=== PATIENT | male | born 1995 | race Caucasian/White ===

== ENCOUNTER 2016-07-03 14:31 | Emergency (ER) | payer BC ==
[2016-07-03 14:37] VITALS: TEMP 36.7; O2SAT 96
--- NOTE | 2016-07-03 14:53 | EMERGENCY ROOM VISIT NOTE ---
History Report prepared by Kayce: Yola Tsang Under the Supervision of: Dr. Phillip Ernst M.D. First contact with patient: 14:41 Chief Complaint: ALCOHOL OVERDOSE Stated Complaint: etoh Nursing Triage Summary: per ems patient drank about 1 fifth of alcohol. "friends stated he fell and hit his head on a parked car." no abrasions or trauma noted to head or face. patient was incontinent of urine at time of arrival. patient responds to painful stimuli. 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 He arrives to the ED by EMS. The nurses report that the patient's friend's told EMS that the patient fell and hit his head on a car. His friends were also intoxicated and did not provide a detailed account. He had an empty fifth of vodka in his possession. He denies any headache. The history is limited due to intoxication. 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 Family History No pertinent family history reported. Current/Historical Medications Unable to Obtain Active Prescriptions or Reported Meds Physical Exam Vital Signs Date Time Temp Pulse Resp B/P Pulse Ox O2 Delivery O2 Flow Rate FiO2 07/03/16 20:53 92 18 98 07/03/16 20:00 108/85 07/03/16 19:55 121 18 98 07/03/16 19:46 138/85 07/03/16 19:25 126 19 100 07/03/16 19:03 107 07/03/16 19:00 132/64 07/03/16 18:55 105 0 95 07/03/16 18:50 102 16 94 07/03/16 18:20 90 97 07/03/16 18:15 74 17 97 07/03/16 18:00 136/70 07/03/16 17:45 79 17 94 07/03/16 17:15 75 16 94 07/03/16 17:00 120/56 07/03/16 16:45 76 0 97 07/03/16 16:40 88 20 97 07/03/16 16:36 151/69 07/03/16 16:10 94 13 98 07/03/16 15:59 157/52 07/03/16 15:19 72 18 95 Room Air 07/03/16 15:10 91 12 96 07/03/16 15:05 164/84 07/03/16 15:01 68 18 95 Room Air 07/03/16 14:46 71 07/03/16 14:37 36.7 92 14 130/39 98 Room Air 07/03/16 14:37 96 Room Air 07/03/16 14:36 132/39 Physical Exam GENERAL: Patient is barely responsive to verbal stimuli. Alcohol noted on breath. Unintelligible conversation. SKIN: No erythema, pallor, cyanosis or rash HEENT: Normocephalic, no lumps, bumps, or bruises. No hemotympanun. No Shane's sign or raccoon sign. Pupils equal, reactive to light and accommodation. Ears normal. Oral cavity and posterior pharynx appear normal. Neck: Supple, no step off. LUNGS: Clear to auscultation. No wheezes, no rales, no rhonchi. HEART: No murmurs. No gallops. No rubs EXTREMITIES: No signs of trauma or infection. NEUROLOGIC: Cranial nerves II-XII within normal limits. No gross motor sensory function deficits. Medical Decision & Procedures ER Provider Diagnostic Interpretation: Radiology results as stated below per my review and radiologist interpretation: CT HEAD WITHOUT CONTRAST (CT) CLINICAL HISTORY: Head pain status post trauma COMPARISON STUDY: No previous studies for comparison. TECHNIQUE: Axial CT of the brain is performed from the vertex to the skull base. IV contrast was not administered for this examination. CT DOSE: 3312.54 mGy.cm FINDINGS: No intra or extra-axial mass lesions are visualized. There is no CT evidence of acute cortical infarction. There is no evidence of midline shift. There is no acute hemorrhage. No calvarial fractures are visualized. The examination is slightly compromised due to motion artifact. There is no evidence of pathologic ventricular dilatation. There is no evidence of acute sinusitis IMPRESSION: Normal noncontrast head CT. Electronically signed by: Marc Wilkinson M.D. 07/03/2016 3:47 PM Dictated Date/Time: 07/03/2016 3:[address] OF THE CERVICAL SPINE CLINICAL HISTORY: Neck pain status post trauma COMPARISON STUDY: No previous studies for comparison. CT DOSE: TECHNIQUE: CT scan of the cervical spine was performed from the skull base to the thoracic inlet. Images are reviewed in the axial, sagittal, and coronal planes. IV contrast was not administered for this examination. FINDINGS: The visualized portions of the lung apices reveal no evidence of pneumothorax. The prevertebral soft tissues are normal. No fractures or subluxations are visualized. There is a cervical levoscoliosis. IMPRESSION: No evidence of acute fracture or traumatic subluxation. Electronically signed by: Marc Wilkinson M.D. 07/03/2016 3:51 PM Dictated Date/Time: 07/03/2016 3:49 PM Laboratory Results 07/03/16 15:15 07/03/16 15:15 Test 07/03/16 15:15 Red Blood Count 5.09 M/uL (4.7-6.1) Mean Corpuscular Volume 83.9 fL (80-100) Mean Corpuscular Hemoglobin 28.7 pg (25-34) Mean Corpuscular Hemoglobin Concent 34.2 g/dl (32-36) RDW Standard Deviation 38.0 fL (36.4-46.3) RDW Coefficient of Variation 12.4 % (11.5-14.5) Mean Platelet Volume 9.7 fL (7.4-10.4) Anion Gap 11.0 mmol/L (3-11) Estimated GFR () 110.6 Estimated GFR (Non- 95.5 BUN/Creatinine Ratio 11.6 (10-20) Calcium Level 8.9 mg/dl (8.5-10.1) Ethyl Alcohol mg/dL 332.0 mg/dl (0-3) Laboratory results as stated above per my review. ED Course 1442: Past medical records reviewed. The patient was evaluated in room A9. A complete history and physical examination was performed. 184: I reevaluated the patient. He remains unarousable. Medical Decision Differential diagnoses: closed head injury, alcohol intoxication. CT examination was completed. No injuries to the cervical spine or head were appreciated. Patient was observed but ultimately signed off to Dr. Salinas at change of shift. Impression Primary Impression: Alcoholic intoxication Additional Impression: Closed head injury Scribe Attestation The scribe's documentation has been prepared under my direction and personally reviewed by me in its entirety. I confirm that the note above accurately reflects all work, treatment, procedures, and medical decision making performed by me. Departure Information Prescriptions Unable to Obtain Active Prescriptions or Reported Meds Referrals No Doctor, Assigned (PCP) Patient Instructions My [facility] Problem Qualifiers
[2016-07-03 15:27] LABS: HEMATOCRIT 42.7 % (42-52); MEAN CELL VOLUME 83.9 fL (80-100); MEAN CORPUSCULAR HEMOGLOBIN 28.7 pg (25-34); MEAN CORPUSCULAR HGB CONC 34.2 g/dl (32-36); MEAN PLATELET VOLUME 9.7 fL (7.4-10.4); PLATELET COUNT 229 K/uL (130-400); RED BLOOD COUNT 5.09 M/uL (4.7-6.1); WHITE BLOOD COUNT 4.73 K/uL (4.8-10.8)
[2016-07-03 15:45] LABS: BLOOD UREA NITROGEN 13 mg/dl (7-18); BUN/CREATININE RATIO 11.6 (10-20); CALCIUM 8.9 mg/dl (8.5-10.1); CARBON DIOXIDE 27 mmol/L (21-32); CHLORIDE 109 mmol/L (98-107); GLUCOSE 98 mg/dl (70-99); POTASSIUM 3.6 mmol/L (3.5-5.1); SODIUM 147 mmol/L (136-145)
--- NOTE | 2016-07-03 15:49 | DIAGNOSTIC IMAGING REPORT ---
CT HEAD WITHOUT CONTRAST (CT) CLINICAL HISTORY: Head pain status post trauma COMPARISON STUDY: No previous studies for comparison. TECHNIQUE: Axial CT of the brain is performed from the vertex to the skull base. IV contrast was not administered for this examination. CT DOSE: 3312.54 mGy.cm FINDINGS: No intra or extra-axial mass lesions are visualized. There is no CT evidence of acute cortical infarction. There is no evidence of midline shift. There is no acute hemorrhage. No calvarial fractures are visualized. The examination is slightly compromised due to motion artifact. There is no evidence of pathologic ventricular dilatation. There is no evidence of acute sinusitis IMPRESSION: Normal noncontrast head CT. Electronically signed by: Marc Wilkinson M.D. 07/03/2016 3:47 PM Dictated Date/Time: 07/03/2016 3:46 PM
--- NOTE | 2016-07-03 15:53 | DIAGNOSTIC IMAGING REPORT ---
CT OF THE CERVICAL SPINE CLINICAL HISTORY: Neck pain status post trauma COMPARISON STUDY: No previous studies for comparison. CT DOSE: TECHNIQUE: CT scan of the cervical spine was performed from the skull base to the thoracic inlet. Images are reviewed in the axial, sagittal, and coronal planes. IV contrast was not administered for this examination. FINDINGS: The visualized portions of the lung apices reveal no evidence of pneumothorax. The prevertebral soft tissues are normal. No fractures or subluxations are visualized. There is a cervical levoscoliosis. IMPRESSION: No evidence of acute fracture or traumatic subluxation. Electronically signed by: Marc Wilkinson M.D. 07/03/2016 3:51 PM Dictated Date/Time: 07/03/2016 3:49 PM
[2016-07-03 20:00] VITALS: BP 108/85
--- NOTE | 2016-07-03 20:46 | EMERGENCY ROOM VISIT NOTE ---
ED Visit Note First contact with patient: 19:02 Patient is a 21-year-old male that was signed out to me by Dr. Ernst awaiting a sober ride. He was medically cleared and had a reported fall or trauma. CT head was negative per report. Patient is awake in bed talking and able to ambulate without difficulties. He is protecting his airway. He is able to have a full conversation. Sober friends were present which included Miss Stack who assumed responsibility of him in combination with another gentleman. Both were updated at bedside. Discussed with Pt/friend concerning signs and symptoms to watch out for. Pt/friend was instructed to follow up with their PCP and discussed with the patient their option to return to the ED at anytime for persistent or worsening symptoms. The appropriate anticipatory guidance and out- patient management, including indications for return to the emergency department , were explained at length to the patient/friend and understood.
[2016-07-03 20:53] VITALS: PULSE 92; O2SAT 98
== END 2016-07-03 20:54 | disposition home or self-care (01) ==
LOC: C.EDA 14:36
DX: F10.129 Alcohol abuse with intoxication, unspecified (principal); S09.90XA Unspecified injury of head, initial encounter; W18.39XA Other fall on same level, initial encounter; W22.8XXA Striking against or struck by other objects, initial encounter